=== PATIENT | female | born 1960 | race Caucasian/White ===

== ENCOUNTER 2016-09-18 19:42 | Emergency (ER) | payer BC ==
[~2016-09-18] VITALS: Ht 157.5 cm; Wt 107.5 kg
[2016-09-18 19:49] VITALS: Ht 157.5 cm; Wt 107.5 kg
[2016-09-18] MEDS ORDERED: IBUPROFEN 200 MG TAB PO ONE (20:30)
[2016-09-18 20:38] LABS: URINE BLOOD (Dip) POC Negative (NEGATIVE)
[2016-09-18] MEDS ORDERED: KETOROLAC 15 MG INJ IM STA (22:16)
--- NOTE | 2016-09-18 22:16 | ERD ---
ER Documentation Chief Complaint Date/Time DATE: 09/18/16 TIME: 22:12 Chief Complaint painful urination and back pain for 2 days HPI This 56-year-old female presents to emergency department with low back pain, bladder pressure, dysuria. Symptoms 3 days without report of hematuria, fever , or chills. ROS All systems reviewed and are negative except as per history of present illness. Medications Home Meds Active Scripts Naproxen* (Naprosyn*) 500 Mg Tablet, 500 MG PO BID Y for PAIN AND/OR INFLAMMATION for 10 Days, #20 TAB Prov:BIANCA BARAHONA 09/19/16 Allergies Allergies: Coded Allergies: No Known Allergy (Unverified , 09/18/16) PMhx/Soc Medical and Surgical Hx: pt denies Medical Hx, pt denies Surgical Hx Hx Alcohol Use: No Hx Substance Use: No Hx Tobacco Use: No Physical Exam Vitals Vitals stable, triage notes reviewed Physical Exam Const: Obese, well appearing, no acute distress Head: Atraumatic Eyes: Normal Conjunctiva PERRLA, EOMI ENT: Normal External Ears, Nose and Mouth mucous membranes moist. Neck: Full range of motion..~ No meningismus. Resp: Respirations even and unlabored, no respiratory distress Cardio: Abd: Low bladder tenderness. CVA tenderness Skin: Back: No midline or flank tenderness Ext: Neur: Awake and alert Psych: Normal Mood and Affect Results 24 hrs Laboratory Tests Test 09/18/16 20:43 Bedside Urine pH (LAB) 6.0 Bedside Urine Protein (LAB) Trace Bedside Urine Glucose (UA) Negative Bedside Urine Ketones (LAB) Negative Bedside Urine Blood Negative Bedside Urine Nitrite (LAB) Negative Bedside Urine Leukocyte Esterase (L Negative Current Medications Medications (Trade) Dose Ordered Sig/Carmen Route PRN Reason Start Time Stop Time Status Last Admin Dose Admin Ibuprofen (Motrin) 400 mg ONCE ONCE PO 09/18/16 20:30 09/18/16 20:31 DC 09/18/16 20:34 Ketorolac Tromethamine (Toradol) 15 mg ONCE STAT IM 09/18/16 22:16 09/18/16 22:18 DC 09/18/16 23:02 Interpretation text, urinalysis negative for leukocytosis, nitrates or microscopic hematuria Procedures/MDM PROCEDURE: US Non-OB Pelvis. CLINICAL INDICATION: Pelvic pain. Status post hysterectomy 14 years ago. TECHNIQUE: Multiple sonographic images of the pelvis were obtained utilizing a transabdominal and endovaginal technique. The images were reviewed on a PACS workstation. COMPARISON: None. FINDINGS: The patient is status post hysterectomy. A structure which appears to represent a normal cervix is visualized. The right ovary is not visualized. The left ovary measures 2.9 x 1.2 x 1.6 cm. Blood flow is demonstrated to the left ovary. No adnexal masses are noted. There is no evidence of free fluid. IMPRESSION: 1. Status post hysterectomy. 2. Normal appearance of the left ovary. 3. The right ovary is not visualized. Electronically viewed and signed by .Missael Koo MD, on 09/18/2016 23:35 This pleasant 56-year-old female presents to emergency department with a 3 day history of low pelvic pain dysuria and back pain. Patient denies hematuria, history nausea vomiting fever or chills. Surgical history includes hysterectomy several years ago. No concern pyelonephritis, cholecystitis, diverticulitis, constipation Urinalysis negative for hematuria, nitrates or leukocytosis. Pelvic ultrasound non-OB reveals as previously stated post hysterectomy, normal-appearing left ovary, right ovary is not visualized. Patient treated with Toradol and Motrin effectively. Patient will be discharged home with diagnosis of abdominal pain, treat with Motrin as needed, increase fiber, fluids, return to emergency department for any worsening or change in symptoms. Any nausea vomiting fever chills, I feel the patient is stable for discharge at this time with outpatient management by primary care physician. I have discussed results, examination findings, the treatment plan with the patient and family present prior to discharge. Indications for emergent reevaluation, side effects of medication were also discussed. All questions were answered. Patient verbalizes understanding and agrees with plan of care. Departure Diagnosis: Primary Impression: Abdominal pain Abdominal location: lower abdomen, unspecified Qualified Code: R10.30 - Lower abdominal pain Additional Impression: Back pain Back pain location: low back pain Chronicity: unspecified Back pain laterality: unspecified Sciatica presence: without sciatica Qualified Code: M54.5 - Low back pain without sciatica, unspecified back pain laterality, unspecified chronicity Condition: Good Patient Instructions: Abdominal Pain, Back Pain (Acute Or Chronic) Referrals: [facility] REFERRAL LIST Additional Instructions: Thank you for for coming to [facility] for your care today. Please ask your nurse or provider if you have questions about your care today and do not leave until all your questions have been answered. Please use any medications given as directed and follow-up with your doctor (or the doctor you were referred to) in the next 2-3 days. If you do not have a primary care doctor you may follow up at the [facility] (listed below). You may also use motrin and tylenol as needed for fever and/or pain unless instructed otherwise by your provider or nurse. Indications for more urgent follow-up have been discussed, but you may return to the Emergency Department at ANY time for any worrisome or worsening symptoms. If you have abdominal pain, please know that no test or exam you received is perfect and you should follow up within 8 hours for continued pain. If you had any imaging studies today, such as an X-Ray or CT Scan, these studies will be reviewed later by a radiologist. You will be called if there are important findings that were not identified today, so make sure the contact information you provided at registration is correct. If you received any narcotic pain control medicine today, such as Vicodin, Morphine or Dilaudid, your coordination and judgment may be affected for a number of hours. Please do not drive or operate heavy machinery, and you may want someone to assist you at home. If you were given a prescription for narcotic medication, be aware that it is very addictive- use sparingly and only if necessary. BIANCA BARAHONA Sep 18, 2016 22:15
--- NOTE | 2016-09-18 23:36 | RADRPT ---
PROCEDURE: US Non-OB Pelvis. CLINICAL INDICATION: Pelvic pain. Status post hysterectomy 14 years ago. TECHNIQUE: Multiple sonographic images of the pelvis were obtained utilizing a transabdominal and endovaginal technique. The images were reviewed on a PACS workstation. COMPARISON: None. FINDINGS: The patient is status post hysterectomy. A structure which appears to represent a normal cervix is v isualized. The right ovary is not visualized. The left ovary measures 2.9 x 1.2 x 1.6 cm. Blood flow is demon strated to the left ovary. No adnexal masses are noted. There is no evidence of free fluid. IMPRESSION: 1. Status post hysterectomy. 2. Normal appearance of the left ovary. 3. The right ovary is not visualized. RPTAT: HTAR .Missael Koo MD, Date Time Electronically viewed and signed by .Missael Koo MD, on 09/18/2016 23:35 .R/
[2016-09-19] MEDS ORDERED: NAPR-260 PO (00:40)
[2016-09-19 00:56] VITALS: BP 140/78; PULSE 74; RESP 16
[2016-10-03 16:18] LABS: URINE BLOOD (Dip) POC Negative (NEGATIVE)
== END 2016-09-19 00:57 | disposition home or self-care (01) ==
LOC: FTE 19:42
DX: R10.30 Lower abdominal pain, unspecified (principal); M54.5 Low back pain; R10.2 Pelvic and perineal pain; E66.9 Obesity, unspecified; Z68.41 Body mass index [BMI] 40.0-44.9, adult
CPT/HCPCS: 76830; 76856; 81003; 96372; J1885; Z7502; Z7610

== ENCOUNTER 2016-11-15 12:25 | Emergency (ER) | payer BC ==
[~2016-11-15] VITALS: Ht 157.5 cm; Wt 97.0 kg
[~2016-11-15 12:25] MED LIST: NAPR-260 PO
[2016-11-15 13:00] VITALS: Ht 157.5 cm; Wt 97.0 kg
[2016-11-15] MEDS ORDERED: ALPRAZOLAM 0.25 MG TAB PO ONE (13:30)
[2016-11-15] MEDS ORDERED: GLYB2.5T2 PO (14:09)
[2016-11-15] MEDS ORDERED: METF1000 PO (14:09)
[2016-11-15] MEDS ORDERED: FLUO20CA22 PO (14:11)
[2016-11-15] MEDS ORDERED: ALPR0.5T PO (14:14)
--- NOTE | 2016-11-15 14:20 | ERD ---
ER Documentation Chief Complaint Date/Time DATE: 11/15/16 TIME: 14:18 Chief Complaint CODE RIGOBERTO ANXIETY AFTER BEING LOCKED IN ELEVATED HPI This 56-year-old female presents to emergency room after she was stuck and elevated for several minutes. She had anxiety and wanted to be seen in the emergency room. No chest pain. She suffered no trauma. ROS All systems reviewed and are negative except as per history of present illness. Medications Home Meds Active Scripts Alprazolam* (Xanax*) 0.5 Mg Tab, 0.5 MG PO Q8H Y for ANXIETY, #5 TAB Prov:WILLIAM FRANKLIN DO 11/15/16 Reported Medications Fluoxetine Hcl* (Fluoxetine Hcl*) 20 Mg Capsule, 20 MG PO DAILY, CAP 11/15/16 Glyburide* (Glyburide*) 2.5 Mg Tablet, 2.5 MG PO DAILY, #30 TAB 11/15/16 Metformin Hcl* (Metformin Hcl*) 1,000 Mg Tablet, 1000 MG PO BID, #30 TAB 11/15/16 Discontinued Scripts Naproxen* (Naprosyn*) 500 Mg Tablet, 500 MG PO BID Y for PAIN AND/OR INFLAMMATION for 10 Days, #20 TAB Prov:BROOKLYNSHREYASBIANCA 09/19/16 Allergies Allergies: Coded Allergies: No Known Allergy (Unverified , 09/18/16) PMhx/Soc Hx Alcohol Use: No Hx Substance Use: No Hx Tobacco Use: No Physical Exam Vitals Vital Signs Date Time Temp Pulse Resp B/P Pulse Ox O2 Delivery O2 Flow Rate FiO2 11/15/16 13:00 98.1 102 17 169/104 100 Physical Exam Const: [] Moderate distress, appears anxious Head: Atraumatic Eyes: Normal Conjunctiva ENT: Normal External Ears, Nose and Mouth. Neck: Full range of motion..~ No meningismus. Resp: Clear to auscultation bilaterally Cardio: Regular rate and rhythm, no murmurs Skin: No petechiae or rashes Ext: No cyanosis, or edema Neur: Awake and alertAnd oriented 3, cranial 2 through 12 intact, no focal deficits, Psych: , no gait anxiety Results 24 hrs Current Medications Medications (Trade) Dose Ordered Sig/Carmen Route PRN Reason Start Time Stop Time Status Last Admin Dose Admin Alprazolam (Xanax) 0.5 mg ONCE ONCE PO 11/15/16 13:30 11/15/16 13:31 DC 11/15/16 13:40 Procedures/MDM Situational anxiety after being stuck in an elevator. Patient was given 0.5 mg of Xanax after which she began to feel much better and she then wanted to go home. She had no chest pain reason to suspect cardiac dysfunction suffered no trauma. We will discharge primary care follow-up next 2 3 days and return precautions.Also discharging with 5.5 Xanax tabs. Departure Diagnosis: Primary Impression: Anxiety attack Condition: Stable Patient Instructions: Anxiety Reaction Additional Instructions: Call your primary care doctor TOMORROW for an appointment during the next 2-3 days.See the doctor sooner or return here if your condition worsens before your appointment time. WILLIAM FRANKLIN DO Nov 15, 2016 14:20
== END 2016-11-15 14:58 | disposition home or self-care (01) ==
LOC: E/R 12:25
DX: F41.9 Anxiety disorder, unspecified (principal); Z79.84 Long term (current) use of oral hypoglycemic drugs
CPT/HCPCS: Z7502; Z7610; 99283

== ENCOUNTER 2017-07-21 22:15 | Inpatient (IN) | END 2017-07-23 18:50 | disposition home or self-care (01) | DRG 394 ==

== ENCOUNTER 2018-05-26 12:25 | Inpatient (IN) | payer BC ==
[~2018-05-26] VITALS: Ht 167.6 cm; Wt 116.8 kg
[~2018-05-26 12:25] MED LIST changes: +ATOR40TA68 PO; +FLUO20CA22 PO; +GLIM2TAB PO; +GLYB2.5T2 PO; +LOSA50TA14 PO; +METF100010 PO; -NAPR-260 PO
[2018-05-26 22:00] VITALS: BP 132/62; PULSE 95; RESP 20
[2018-05-26] MEDS ORDERED: NACL 0.9% 3 ML SYG IV SCH (22:00)
[2018-05-26] MEDS ORDERED: ACETAMINOPHEN 650 MG SUPP PR PRN (22:00)
[2018-05-26] MEDS ORDERED: hydrALAzine 20 MG INJ IV PRN (22:00)
[2018-05-26] MEDS: SOD CHLORIDE 0.9% 1,000 ML IV SCH (22:06)
[2018-05-26] MEDS: morphine 2 MG INJ IV PRN (22:06)
[2018-05-26 22:19] VITALS: Ht 167.6 cm; Wt 116.8 kg
[2018-05-27] MEDS: INSULIN ASPART [NOVOLOG] 3 ML PEN SC SCH ×6 (00:38→20:23)
[2018-05-27 02:00] VITALS: BP 119/64; PULSE 96; RESP 18
[2018-05-27] MEDS ORDERED: ACCU-CHEK XX SCH (02:00)
--- NOTE | 2018-05-27 05:48 | HP ---
Date/Time of Note Date/Time of Note DATE: 05/27/18 TIME: 05:39 Assessment/Plan VTE Prophylaxis SCD applied (from Nsg): Yes Pharmacological prophylaxis: NA/contraindicated Pharm contraindication: low risk/ambulating Lines/Catheters IV Catheter Type (from Nrsg): Peripheral IV Urinary Cath still in place: No Assessment/Plan Hospital Course This is a 58-year-old female being admitted to the [facility] floor for: 1. Recurrent small bowel obstruction: CT showed dilated small bowel with air- fluid levels and decompressed distal small bowel consistent with small bowel obstruction. Suspect transition point within the right aspect of complex ventral hernia. At the current time we will keep the patient n.p.o., continue NG tube to low wall suction.. IV fluid hydration with normal saline. Will consult general surgery in the a.m. small bowel follow-through in the a.m. 2. History of spigelian hernia: No evidence of obstruction from these, further management as per general surgery. 3. Diabetes mellitus: We will check hemoglobin A1c, will hold patient's home medications, insulin sliding scale 4. Hypertension: We will hold patient's home medication at this time as needed hydralazine for systolic greater than 170 5. Hyperlipidemia: We will check lipid panel, resume patient's home medication once patient is able to tolerate diet 6. Gastritis: Stable 7. Arthritis: Stable 8 DVT GI prophylaxis: SCDs, no GI prophylaxis indicated Further treatment strategy will be implemented as per the clinical course Result Diagram: 05/26/18214605/[id number]/182146 Results 24hrs Laboratory Tests Test 05/26/18 21:47 05/26/18 22:28 05/27/18 00:34 05/27/18 04:34 White Blood Count 7.7 Pending Red Blood Count 4.40 Pending Hemoglobin 11.7 L Pending Hematocrit 37.7 Pending Mean Corpuscular 85.7 Pending Volume Mean Corpuscular 26.6 L Pending Hemoglobin Mean Corpuscular 31.0 L Pending Hemoglobin Concent Red Cell 14.1 Pending Distribution Width Platelet Count 189 # Pending Mean Platelet Volume 9.7 Pending Immature 0.300 Granulocytes % Neutrophils % 64.2 Lymphocytes % 24.1 Monocytes % 8.9 Eosinophils % 2.2 Basophils % 0.3 Nucleated Red Blood 0.0 Cells % Immature 0.020 Granulocytes # Neutrophils # 4.9 Lymphocytes # 1.8 Monocytes # 0.7 Eosinophils # 0.2 Basophils # 0.0 Nucleated Red Blood 0.0 Cells # Sodium Level 136 Potassium Level 4.0 Chloride Level 105 Carbon Dioxide Level 29 Anion Gap 2 L Blood Urea Nitrogen 20 Creatinine 0.57 Est Glomerular > 60 Filtrat Rate mL/min Glucose Level 141 Hemoglobin A1c 7.5 H Calcium Level 8.5 Magnesium Level 2.2 Total Bilirubin 0.3 Direct Bilirubin 0.00 Indirect Bilirubin 0.3 Aspartate Amino 24 Transf (AST/SGOT) Alanine 50 Aminotransferase (AL T/SGPT) Alkaline Phosphatase 71 Total Protein 6.5 Albumin 3.4 Globulin 3.10 Albumin/Globulin 1.09 Ratio Bedside Glucose 135 149 HPI/ROS Admit Date/Time Admit Date/Time May 26, 2018 at 20:40 Hx of Present Illness Chief complaint: Abdominal pain This is a 58-year-old female with a past medical history of multiple ventral hernia repairs and recurrent small bowel obstructions who presented to [facility] with complaints of abdominal pain that started on . Patient reported that her last BM was on . She was evaluated in the ER and a noncontrast CT showed dilated small bowel with air-fluid levels and decompressed distal small bowel consistent with small bowel obstruction. Suspect transition point within the right aspect of complex ventral hernia. No evidence of acute appendicitis. Status post cholecystectomy and hysterectomy patient was admitted to [facility] and had an NG tube inserted. She was seen by the general surgeon there as well. I do not have the reports for these at the current time. She was maintained on low flow low wall suction. And then she was transferred to [facility] secondary to insurance purposes. Patient at the current time remains with an NG tube which has been connected to wall suction Pertinent laboratory findings laboratory findings upon admission to the transferring facility showed: White blood cell count of 18,000 hemoglobin 15.1/hematocrit 46.9/platelet count 220 PT 10.3 INR 0.94 BMP showed a sodium of 135 potassium 4.2 chloride 29 CO2 20.4 glucose 245 BUN 21 creatinine 0.7. ROS Const: As per HPI Eyes : No pain discharge or redness or change in visual acuity ENT: No pain, sore throat, congestion, congestion, dysphagia or discharge Respiratory: No shortness of breath, cough, sputum, wheezing, or pleuritic pain Cardiovascular: No chest pain, palpitation, PND, or edema GI : As per HPI Genitourinary: No dysuria, hematuria, flank pain , discharge or CVA tenderness Musculoskeletal: No joint pain, back pain, neck pain, restricted range of motion in neck or joints Skin: No rash, bruising or hives Neuro: No headache, dizziness, syncope, seizure, focal weakness Endocrine: No polyuria, polydipsia, temperature intolerance Psych: No hallucination, depression, anxiety or suicidal ideation PMH/Family/Social Past Medical History Abdominal hernia, history of small bowel obstructions, diabetes mellitus, hypertension, hyperlipidemia, gastritis, arthritis Medications Current Medications Sodium Chloride 1,000 ml @ 100 mls/hr Q10H IV Last administered on 05/26/18at 22:06; Admin Dose 100 MLS/HR; Start 05/26/18 at 21:31 IV Flush (NS 3 ml) 3 ml PER PROTOCOL IV ; Start 05/26/18 at 22:00 Ondansetron HCl (Zofran Inj) 4 mg Q6H PRN IV NAUSEA/VOMITING; Start 05/26/18 at 22:00 Acetaminophen (Tylenol Supp) 650 mg Q6H PRN [place] .PAIN 1-3 OR TEMP; Start 05/26/18 at 22:00 Morphine Sulfate (morphine) 2 mg Q4H PRN IV .SEVERE PAIN 7-10 Last administered on 05/26/18at 22:06; Admin Dose 2 MG; Start 05/26/18 at 22:00 Insulin Aspart (Novolog Insulin Pen) NOVOLOG *MILD* ALGORI... Q4 SC Last administered on 05/27/18at 05:28; Admin Dose 1 UNIT; Start 05/27/18 at 01:00 Hydralazine HCl (Apresoline) 10 mg Q4H PRN IV ELEVATED BLOOD PRESSURE; Start 05/26/18 at 22:00 Coded Allergies: No Known Allergy (Unverified , 09/18/16) Past Surgical History Several hernia surgeries, small bowel resection, total abdominal hysterectomy Past Surgical Hx: other Family History Significant Family History: no pertinent family hx Social History Alcohol Use: none Smoking Status: Never smoker Drug Use: none Exam/Review of Systems Vital Signs Vitals Vital Signs Date Temp Pulse Resp B/P (MAP) Pulse Ox O2 O2 Flow FiO2 Time Delivery Rate 05/27/18 98.9 96 18 119/64 97 Room Air 02:00 (82) Exam Exam General: Patient is a pleasant female currently lying in bed in no acute distress HEENT: Atraumatic, normocephalic. The pupils are equal, round and reactive. Extraocular motor are intact, NG tube in place connected to wall suction Neck: Supple with full range of motion. No rigidity or meningismus Chest: Nontender Lungs: Clear to auscultation bilaterally no crackles rales or wheezing Heart: Normal S1-S2, Regular rhythm and rate. No murmur, S3, or S4 Abdomen: Soft, generalized tenderness to palpation with greatest being in the right lower quadrant, morbidly obese, hypoactive bowel sounds Extremities: Normal to inspection, no edema no cyanosis Neurologic: Normal mental status, speech normal, cranial nerves II through XII are intact, motor and sensory are intact, ADDIE MEDINA May 27, 2018 05:48
[2018-05-27] MEDS: morphine 2 MG INJ IV PRN ×2 (07:06→10:54)
[2018-05-27 07:28] VITALS: BP 116/64; PULSE 95; RESP 18
[2018-05-27] MEDS: SOD CHLORIDE 0.9% 1,000 ML IV SCH ×3 (08:27→23:37)
[2018-05-27] MEDS ORDERED: ACETAMINOPHEN 500 MG TAB PO PRN (09:00)
[2018-05-27] MEDS ORDERED: DIATR MEGLU/DIATRIZOATE SODIUM 120 ML BTL ONE (09:05)
[2018-05-27] MEDS: ONDANSETRON 4 MG INJ IV PRN (13:16)
[2018-05-27 13:32] VITALS: BP 114/69; PULSE 95; RESP 18
--- NOTE | 2018-05-27 16:28 | CONS ---
Assessment/Plan Assessment/Plan Hospital Course (Demo Recall) 1. Abdominal pain with concern for small bowel obstruction: + Bowel function -SBFT noted> negative for obstruction -Advance diet as tolerated -May be discharged per medical team if tolerating diet and continues to have + bowel function 2. Diabetes: Glucose optimization 3. Hypertension and hyperlipidemia: -Highly encourage weight loss -Medical management 4. Gastritis: -PPI 5. Arthritis: -Pain management as needed -Encourage weight loss 6. Morbid obesity BMI: 42 -diet and exercise optimization -encourage weight loss Thank you. Patient seen and examined in collaboration with Dr. Ramo Wilson. Consultation Date/Type/Reason Admit Date/Time May 26, 2018 at 20:40 Date of Consultation: May 27, 2018 Type of Consult Surgical Reason for Consultation Small bowel obstruction Requesting Provider: ADDIE MEDINA Date/Time of Note DATE: 05/27/18 TIME: 16:14 Hx of Present Illness Heaven Crespo is a 58-year-old woman with past medical history of diabetes, hypertension, hyperlipidemia, gastritis, arthritis, multiple abdominal surgeries including ventral hernia repair x5, recurrent small bowel obstruction, hysterectomy, cholecystectomy who presented to outside hospital with reports of abdominal pain which started on the . Associated symptoms include no bowel function since the . CT imaging from outside hospital showed dilated small bowel with air-fluid levels and decompressed distal small bowel consistent with small bowel obstruction. Pertinent lab findings include elevated WBC from outside hospital. No current reports of fevers, chills, congested cough, chest pain, palpitations, nausea, vomiting, diarrhea, seizure, rash. A small bowel follow-through was performed at this facility which shows no bowel obstruction. She has also since had multiple large bowel movements and is stated to be feeling much better. General surgery was asked to evaluate. 12 point review of systems is performed and is negative except for as stated in HPI. Past Medical History As above Home Meds Reported Medications Glimepiride* (Glimepiride*) 2 Mg Tablet, 2 MG PO BID, #30 07/21/17 Atorvastatin* (Atorvastatin*) 40 Mg Tablet, 40 MG PO QHS, #30 07/21/17 Losartan Potassium* (Losartan Potassium*) 50 Mg Tablet, 50 MG PO DAILY, #30 07/21/17 Fluoxetine Hcl* (Fluoxetine Hcl*) 20 Mg Capsule, 20 MG PO DAILY, CAP 11/15/16 Glyburide* (Glyburide*) 2.5 Mg Tablet, 2.5 MG PO DAILY, #30 TAB 11/15/16 Metformin Hcl* (Metformin Hcl*) 1,000 Mg Tablet, 1000 MG PO BID, #30 TAB 11/15/16 Medications Current Medications Sodium Chloride 1,000 ml @ 100 mls/hr Q10H IV Last administered on 05/27/18at 08:27; Admin Dose 100 MLS/HR; Start 05/26/18 at 21:31 IV Flush (NS 3 ml) 3 ml PER PROTOCOL IV ; Start 05/26/18 at 22:00 Ondansetron HCl (Zofran Inj) 4 mg Q6H PRN IV NAUSEA/VOMITING Last administered on 05/27/18at 13:16; Admin Dose 4 MG; Start 05/26/18 at 22:00 Acetaminophen (Tylenol Supp) 650 mg Q6H PRN CO .PAIN 1-3 OR TEMP; Start 05/26/18 at 22:00 Morphine Sulfate (morphine) 2 mg Q4H PRN IV .SEVERE PAIN 7-10 Last administered on 05/27/18at 10:54; Admin Dose 2 MG; Start 05/26/18 at 22:00 Insulin Aspart (Novolog Insulin Pen) NOVOLOG *MILD* ALGORI... Q4 SC Last administered on 05/27/18at 12:47; Admin Dose 1 UNIT; Start 05/27/18 at 01:00 Hydralazine HCl (Apresoline) 10 mg Q4H PRN IV ELEVATED BLOOD PRESSURE; Start 05/26/18 at 22:00 Acetaminophen (Tylenol Tab) 500 mg Q6H PRN PO MILD PAIN(1-3)OR ELEVATED TEMP; Start 05/27/18 at 09:00 Allergies: Coded Allergies: No Known Allergy (Unverified , 09/18/16) Past Surgical History As above Past Surgical Hx: other Social History Alcohol Use: none Smoking Status: Never smoker Drug Use: none Exam/Review of Systems Exam Vitals Vital Signs Date Temp Pulse Resp B/P (MAP) Pulse Ox O2 O2 Flow FiO2 Time Delivery Rate 05/27/18 98.5 95 18 114/69 93 Room Air 13:32 (84) 05/27/18 2.0 09:00 Intake and Output 3/05/26/18 05/27/18 1515:00 23:00 07:00 IntakeIntake Total 700 ml BalanceBalance 700 ml Constitutional: alert, oriented, obese Psych: no complaints, nl mood/affect Head: normocephalic, atraumatic Eyes: nl conjunctiva, EOMI ENMT: nl external ears & nose, nl lips & teeth, mucosa pink and moist, other (NG tube) Neck: supple, non-tender Respiratory: normal air movement; No congested cough, No labored breathing Cardiovascular: regular rate and rhythm, nl pulses Gastrointestinal: soft, non-tender, distended (Moderate), other (Large pannus; surgical scars) Musculoskeletal: nl extremities to inspection, nl gait and stance Extremities: normal pulses Neurological: nl mental status, nl speech, nl strength Skin: nl turgor, other (Vitiligo); No rash or lesions Results Result Diagram: 05/27/18 0434 05/27/18 0433 Results 24hrs Laboratory Tests Test 05/26/18 21:47 05/26/18 22:28 05/27/18 00:34 05/27/18 04:33 White Blood Count 7.7 Red Blood Count 4.40 Hemoglobin 11.7 L Hematocrit 37.7 Mean Corpuscular 85.7 Volume Mean Corpuscular 26.6 L Hemoglobin Mean Corpuscular 31.0 L Hemoglobin Concent Red Cell 14.1 Distribution Width Platelet Count 189 # Mean Platelet Volume 9.7 Immature 0.300 Granulocytes % Neutrophils % 64.2 Lymphocytes % 24.1 Monocytes % 8.9 Eosinophils % 2.2 Basophils % 0.3 Nucleated Red Blood 0.0 Cells % Immature 0.020 Granulocytes # Neutrophils # 4.9 Lymphocytes # 1.8 Monocytes # 0.7 Eosinophils # 0.2 Basophils # 0.0 Nucleated Red Blood 0.0 Cells # Sodium Level 136 143 Potassium Level 4.0 4.0 Chloride Level 105 104 Carbon Dioxide Level 29 29 Anion Gap 2 L 10 # Blood Urea Nitrogen 20 17 Creatinine 0.57 0.53 Est Glomerular > 60 > 60 Filtrat Rate mL/min Glucose Level 141 157 Hemoglobin A1c 7.5 H Calcium Level 8.5 8.3 L Magnesium Level 2.2 2.2 Total Bilirubin 0.3 0.3 Direct Bilirubin 0.00 0.00 Indirect Bilirubin 0.3 0.3 Aspartate Amino 24 20 Transf (AST/SGOT) Alanine 50 45 Aminotransferase (AL T/SGPT) Alkaline Phosphatase 71 68 Total Protein 6.5 6.3 Albumin 3.4 3.4 Globulin 3.10 2.90 Albumin/Globulin 1.09 1.17 Ratio Bedside Glucose 135 149 Triglycerides Level 125 Cholesterol Level 135 LDL Cholesterol, 76 Calculated HDL Cholesterol 34 L Cholesterol/HDL 3.9 Ratio Thyroid Stimulating 0.622 Hormone (TSH) Test 05/27/18 04:34 05/27/18 05:25 05/27/18 08:29 05/27/18 12:45 White Blood Count 8.3 Red Blood Count 4.37 Hemoglobin 11.7 L Hematocrit 37.5 Mean Corpuscular 85.8 Volume Mean Corpuscular 26.8 L Hemoglobin Mean Corpuscular 31.2 L Hemoglobin Concent Red Cell 14.2 Distribution Width Platelet Count 198 Mean Platelet Volume 10.0 Immature 0.200 Granulocytes % Neutrophils % Segmented 71 Neutrophils % (Manual) Band Neutrophils % 4 (Manual) Lymphocytes % Lymphocytes % 17 (Manual) Reactive Lymphocytes 2 H % (Manual) Monocytes % Monocytes % (Manual) 6 Eosinophils % Basophils % Nucleated Red Blood 0.0 Cells % Immature 0.020 Granulocytes # Neutrophils # Neutrophils # 5.9 (Manual) Band Neutrophils # 0.3 Lymphocytes (Manual) 1.4 Lymphocytes # Reactive Lymphocytes 0.1 H # Monocytes # Monocytes # (Manual) 0.4 Eosinophils # Basophils # Nucleated Red Blood Cells # Platelet Estimate NORMAL Polychromasia 1+ Anisocytosis 1+ Microcytosis 1+ Bedside Glucose 157 151 144 Medications Medication Current Medications Sodium Chloride 1,000 ml @ 100 mls/hr Q10H IV Last administered on 05/27/18at 08:27; Admin Dose 100 MLS/HR; Start 05/26/18 at 21:31 IV Flush (NS 3 ml) 3 ml PER PROTOCOL IV ; Start 05/26/18 at 22:00 Ondansetron HCl (Zofran Inj) 4 mg Q6H PRN IV NAUSEA/VOMITING Last administered on 05/27/18at 13:16; Admin Dose 4 MG; Start 05/26/18 at 22:00 Acetaminophen (Tylenol Supp) 650 mg Q6H PRN CO .PAIN 1-3 OR TEMP; Start 05/26/18 at 22:00 Morphine Sulfate (morphine) 2 mg Q4H PRN IV .SEVERE PAIN 7-10 Last administered on 05/27/18at 10:54; Admin Dose 2 MG; Start 05/26/18 at 22:00 Insulin Aspart (Novolog Insulin Pen) NOVOLOG *MILD* ALGORI... Q4 SC Last administered on 05/27/18at 12:47; Admin Dose 1 UNIT; Start 05/27/18 at 01:00 Hydralazine HCl (Apresoline) 10 mg Q4H PRN IV ELEVATED BLOOD PRESSURE; Start 05/26/18 at 22:00 Acetaminophen (Tylenol Tab) 500 mg Q6H PRN PO MILD PAIN(1-3)OR ELEVATED TEMP; Start 05/27/18 at 09:00 ESTRELLITA DEL RIO NP May 27, 2018 16:28
--- NOTE | 2018-05-27 16:55 | PDOCDIS ---
Discharge Instructions CONDITION [id number] Patient Condition: [id number] Stable HOME CARE INSTRUCTIONS: [id number] Special Diet: [id number] Carbohydrate controlled diet OTHER ORDERS: Other Orders: 1. Resume home medications. 2. Take a carbohydrate controlled diet as tolerated. 3. Resume activities as tolerated. 4. Follow-up with your primary care physician in 2 weeks. 5. Please go to the nearest emergency room if you have any abdominal pain, persistent nausea/vomiting, or any other unusual signs/symptoms. ABHI GUSMAN NP May 27, 2018 16:55
--- NOTE | 2018-05-27 17:00 | DS ---
Date/Time of Note Date/Time of Note DATE: 05/27/18 TIME: 16:57 Discharge Summary Admission/Discharge Info Admit Date/Time May 26, 2018 at 20:40 Discharge Date/Time Discharge Diagnosis 1. Recurrent small bowel obstruction. 2. History of spigelian hernia. 3. Diabetes mellitus type 2. Hemoglobin A1c 7.5. 4. Hypertension. 5. Hyperlipidemia. 6. Obesity. BMI 41.6 kg/m. Patient Condition: Stable Consults 1. Ramo Wilson MD, General Surgery. Procedures Small Bowel X-ray IMPRESSION: 1. Nasogastric tube tip in the stomach. 2. Prior right upper quadrant abdomen surgery. 3. Mildly dilated mid small bowel measuring 4.9 cm. 4. No evidence of obstruction. 5. Otherwise unremarkable small bowel follow-through. Hx of Present Illness This is a 58-year-old female with a past medical history of multiple abdominal surgeries and multiple small bowel obstructions who presented to [facility] with complaint of abdominal pain. Patient's CT scan showed dilated small bowel with air-fluid levels and decompressed distal small bowel consistent with small bowel obstruction. The patient was evaluated by general surgery at [facility]. The patient was transferred to [facility] for further evaluation and management because of insurance reasons. Hospital Course The patient was admitted to inpatient setting. She was started on NGT decompression. General surgery consult was obtained. The patient underwent an abdominal x-ray upon admission to [facility] that was showing gaseous distention of the proximal small bowel, unable to exclude bowel obstruction. The patient underwent a small bowel follow-through on 05/27/2018 that was showing no evidence of any obstruction. The patient's NGT decompression was discontinued. The patient's NG tube was discontinued. The patient was started on a clear liquid diet and the patient's diet was advanced as tolerated to a regular consistency diet without any significant gastrointestinal symptoms. The patient was cleared by general surgery to be discharged home. The patient's chronic problems include diabetes mellitus type 2. The patient's hemoglobin A1c was found to be 7.5. The patient was maintained on sliding scale insulin. The patient has underlying hypertension. The patient was maintained on PRN antihypertensives for any high blood pressure readings. The patient has underlying dyslipidemia. The patient's fasting lipid panel was satisfactory. The patient is obese with a BMI of 41.6 kg/m square. The patient was advised on weight reduction. The patient had a stable hospital course. The patient is stable to be discharged home. Discharge Instructions 1. Resume home medications. 2. Take a carbohydrate controlled diet as tolerated. 3. Resume activities as tolerated. 4. Follow-up with your primary care physician in 2 weeks. 5. Please go to the nearest emergency room if you have any abdominal pain, persistent nausea/vomiting, or any other unusual signs/symptoms. The patient verbalized understanding of her discharge instructions. At this time I would like to thank Dr. Wilson for seeing the patient and providing clinical recommendations. The patient was seen in collaboration with Dr. eRyes. Home Meds Reported Medications Glimepiride* (Glimepiride*) 2 Mg Tablet, 2 MG PO BID, #30 07/21/17 Atorvastatin* (Atorvastatin*) 40 Mg Tablet, 40 MG PO QHS, #30 07/21/17 Losartan Potassium* (Losartan Potassium*) 50 Mg Tablet, 50 MG PO DAILY, #30 07/21/17 Fluoxetine Hcl* (Fluoxetine Hcl*) 20 Mg Capsule, 20 MG PO DAILY, CAP 11/15/16 Glyburide* (Glyburide*) 2.5 Mg Tablet, 2.5 MG PO DAILY, #30 TAB 11/15/16 Metformin Hcl* (Metformin Hcl*) 1,000 Mg Tablet, 1000 MG PO BID, #30 TAB 11/15/16 Follow-up Plan Patient to follow-up with her primary care physician in 2 weeks. Primary Care Provider Not On Staff Doctor Time spent on discharge: > 30 minutes Pending Labs Laboratory Tests Test 05/26/18 21:47 05/26/18 22:28 05/27/18 00:34 05/27/18 04:33 White Blood 7.7 Count 10^3/ul (4.8-10 .8) Red Blood 4.40 Count 10^6/ul (4.20-5 .40) Hemoglobin 11.7 g/dl (12.0-16.0 ) Hematocrit 37.7 % (37.0-47.0) Mean 85.7 Corpuscular fl (82.0-101.0) Volume Mean 26.6 Corpuscular pg (29.0-33.0) Hemoglobin Mean 31.0 Corpuscular g/dl (32.0-37.0 Hemoglobin Conc ) ent Red Cell 14.1 Distribution % (11.5-14.5) Width Platelet Count 189 10^3/UL (140-41 5) Mean Platelet 9.7 Volume fl (7.4-10.4) Immature 0.300 Granulocytes % % (0.001-0.429) Neutrophils % 64.2 % (39.0-77.0) Lymphocytes % 24.1 % (15.0-51.0) Monocytes % 8.9 % (0.0-11.0) Eosinophils % 2.2 % (0.0-7.0) Basophils % 0.3 % (0.0-2.0) Nucleated Red 0.0 Blood Cells % /100WBC (0.0-0. 0) Immature 0.020 Granulocytes # 10^3/ul (0.0-0. 031) Neutrophils # 4.9 10^3/ul (1.6-7. 5) Lymphocytes # 1.8 10^3/ul (0.8-2. 9) Monocytes # 0.7 10^3/ul (0.3-0. 9) Eosinophils # 0.2 10^3/ul (0.0-0. 5) Basophils # 0.0 10^3/ul (0.0-0. 1) Nucleated Red 0.0 Blood Cells # 10^3/ul (0.0-0. 0) Sodium Level 136 143 mmol/L (135-144 mmol/L (135-14 ) 4) Potassium 4.0 4.0 Level mmol/L (3.5-5.1 mmol/L (3.5-5. ) 1) Chloride Level 105 104 mmol/L (97-110) mmol/L (97-110 ) Carbon Dioxide 29 29 Level mmol/L (21-31) mmol/L (21-31) Anion Gap 2 (5-13) 10 (5-13) Blood Urea 20 mg/dl (7-20) 17 Nitrogen mg/dl (7-20) Creatinine 0.57 0.53 mg/dl (0.44-1.0 mg/dl (0.44-1. 0) 00) Est Glomerular > 60 > 60 Filtrat mL/min (>60) mL/min (>60) Rate mL/min Glucose Level 141 157 mg/dl (70-220) mg/dl (70-220) Hemoglobin A1c 7.5 % (0-5.9) Calcium Level 8.5 8.3 mg/dl (8.4-10.2 mg/dl (8.4-10. ) 2) Magnesium 2.2 2.2 Level mg/dl (1.7-2.5) mg/dl (1.7-2.5 ) Total 0.3 0.3 Bilirubin mg/dl (0.2-1.3) mg/dl (0.2-1.3 ) Direct 0.00 0.00 Bilirubin mg/dl (0.00-0.2 mg/dl (0.00-0. 0) 20) Indirect 0.3 0.3 Bilirubin mg/dl (0-1.1) mg/dl (0-1.1) Aspartate Amino 24 IU/L (15-46) 20 Transf (AST/SGO IU/L (15-46) T) Alanine 50 IU/L (13-69) 45 Aminotransferas IU/L (13-69) e (ALT/SGPT) Alkaline 71 68 Phosphatase IU/L (42-121) IU/L (42-121) Total Protein 6.5 6.3 g/dl (6.1-8.1) g/dl (6.1-8.1) Albumin 3.4 3.4 g/dl (3.3-4.9) g/dl (3.3-4.9) Globulin 3.10 2.90 g/dl (1.3-3.2) g/dl (1.3-3.2) Albumin/Globuli 1.09 1.17 n Ratio Bedside 135 149 Glucose mg/dL (70-220) mg/dL (70-220) Triglycerides 125 Level mg/dl (0-149) Cholesterol 135 Level mg/dl (100-200 ) LDL 76 mg/dl Cholesterol, Calculated HDL 34 Cholesterol mg/dl (37-92) Cholesterol/HDL 3.9 RATIO Ratio Thyroid 0.622 Stimulating MIU/L (0.465-4 Hormone (TSH) .680) Test 05/27/18 04:34 05/27/18 05:25 05/27/18 08:29 05/27/18 12:45 White Blood 8.3 Count 10^3/ul (4.8-10 .8) Red Blood 4.37 Count 10^6/ul (4.20-5 .40) Hemoglobin 11.7 g/dl (12.0-16.0 ) Hematocrit 37.5 % (37.0-47.0) Mean 85.8 Corpuscular fl (82.0-101.0) Volume Mean 26.8 Corpuscular pg (29.0-33.0) Hemoglobin Mean 31.2 Corpuscular g/dl (32.0-37.0 Hemoglobin Conc ) ent Red Cell 14.2 Distribution % (11.5-14.5) Width Platelet Count 198 10^3/UL (140-41 5) Mean Platelet 10.0 Volume fl (7.4-10.4) Immature 0.200 Granulocytes % % (0.001-0.429) Neutrophils % % (39.0-77.0) Segmented 71 % (39-77) Neutrophils % (Manual) Band 4 % (0-4) Neutrophils % (Manual) Lymphocytes % % (15.0-51.0) Lymphocytes % 17 % (15-51) (Manual) Reactive 2 % (0-0) Lymphocytes % (Manual) Monocytes % % (0.0-11.0) Monocytes % 6 % (0-11) (Manual) Eosinophils % % (0.0-7.0) Basophils % % (0.0-2.0) Nucleated Red 0.0 Blood Cells % /100WBC (0.0-0. 0) Immature 0.020 Granulocytes # 10^3/ul (0.0-0. 031) Neutrophils # 10^3/ul (1.6-7. 5) Neutrophils # 5.9 (Manual) 10^3/ul (1.6-7. 5) Band 0.3 Neutrophils # 10^3/ul (0.0-0. 6) Lymphocytes 1.4 (Manual) 10^3/ul (0.8-2. 9) Lymphocytes # 10^3/ul (0.8-2. 9) Reactive 0.1 Lymphocytes # 10^3/ul (0.0-0. 0) Monocytes # 10^3/ul (0.3-0. 9) Monocytes # 0.4 (Manual) 10^3/ul (0.3-0. 9) Eosinophils # 10^3/ul (0.0-0. 5) Basophils # 10^3/ul (0.0-0. 1) Nucleated Red 10^3/ul (0.0-0. Blood Cells # 0) Platelet NORMAL Estimate Polychromasia 1+ (0-0) Anisocytosis 1+ (0-0) Microcytosis 1+ (0-0) Bedside 157 151 144 Glucose mg/dL (70-220) mg/dL (70-220) mg/dL (70-220) ABHI GUSMAN NP May 27, 2018 17:00
[2018-05-27 20:08] VITALS: BP 100/51; PULSE 90; RESP 18
[2018-05-28] MEDS: INSULIN ASPART [NOVOLOG] 3 ML PEN SC SCH ×4 (01:00→12:24)
[2018-05-28 02:00] VITALS: BP 122/68; PULSE 88; RESP 18
[2018-05-28] MEDS ORDERED: GLUCAGON 1 MG INJ IM PRN (04:30)
[2018-05-28] MEDS ORDERED: DEXTROSE 50% 50 ML SYRINGE IV PRN ×2 (04:30)
[2018-05-28] MEDS ORDERED: GLUCOSE GEL 15 GRAM TUBE PO PRN ×2 (04:30)
[2018-05-28] MEDS ORDERED: GLUCOSE GEL 15 GRAM TUBE BUCCAL PRN (04:30)
[2018-05-28] MEDS ORDERED: Insulin NOVOLOG SS MILD Algorithm (SS with meals and bedtime) SC SCH (07:00)
[2018-05-28] MEDS ORDERED: INSULIN ASPART [NOVOLOG] 3 ML PEN SC SCH (07:00)
[2018-05-28 07:30] VITALS: BP 116/56; PULSE 88; RESP 18
[2018-05-28] MEDS: ONDANSETRON 4 MG INJ IV PRN (07:53)
--- NOTE | 2018-05-28 11:35 | DS ---
Date/Time of Note Date/Time of Note DATE: 05/28/18 TIME: 11:34 Discharge Summary Admission/Discharge Info Admit Date/Time May 26, 2018 at 20:40 Discharge Date/Time Discharge Diagnosis 1. Recurrent small bowel obstruction. 2. History of spigelian hernia. 3. Diabetes mellitus type 2. Hemoglobin A1c 7.5. 4. Hypertension. 5. Hyperlipidemia. 6. Obesity. BMI 41.6 kg/m. Patient Condition: Stable Consults Ramo Wilson MD, General Surgery. Procedures Small Bowel X-ray IMPRESSION: 1. Nasogastric tube tip in the stomach. 2. Prior right upper quadrant abdomen surgery. 3. Mildly dilated mid small bowel measuring 4.9 cm. 4. No evidence of obstruction. 5. Otherwise unremarkable small bowel follow-through. Hx of Present Illness This is a 58-year-old female with a past medical history of multiple abdominal surgeries and multiple small bowel obstructions who presented to [facility] with complaint of abdominal pain. Patient's CT scan showed dilated small bowel with air-fluid levels and decompressed distal small bowel consistent with small bowel obstruction. The patient was evaluated by general surgery at [facility]. The patient was transferred to [facility] for further evaluation and management because of insurance reasons. Hospital Course The patient was admitted to inpatient setting. She was started on NGT decompression. General surgery consult was obtained. The patient underwent an abdominal x-ray upon admission to [facility] that was showing gaseous distention of the proximal small bowel, unable to exclude bowel obstruction. The patient underwent a small bowel follow-through on 05/27/2018 that was showing no evidence of any obstruction. The patient's NGT decompression was discontinued. The patient's NG tube was discontinued. The patient was started on a clear liquid diet and the patient's diet was advanced as tolerated. The patient was cleared by general surgery to be discharged home. The patient's chronic problems include diabetes mellitus type 2. The patient's hemoglobin A1c was found to be 7.5. The patient was maintained on sliding scale insulin. The patient has underlying hypertension. The patient was maintained on PRN antihypertensives for any high blood pressure readings. The patient has underlying dyslipidemia. The patient's fasting lipid panel was satisfactory. The patient is obese with a BMI of 41.6 kg/m square. The patient was advised on weight reduction. The patient had a stable hospital course. The patient is stable to be discharged home. The patient had discharge orders on 05/27/2018. However, the patient had some intolerance to solid food intake. Therefore, the patient's discharge was delayed until 05/28/2018 when the patient was able to tolerate a solid diet without any significant gastrointestinal symptoms. Discharge Instructions 1. Resume home medications. 2. Take a carbohydrate controlled diet as tolerated. 3. Resume activities as tolerated. 4. Follow-up with your primary care physician in 2 weeks. 5. Please go to the nearest emergency room if you have any abdominal pain, persistent nausea/vomiting, or any other unusual signs/symptoms. The patient verbalized understanding of her discharge instructions. At this time I would like to thank Dr. Wilson for seeing the patient and providing clinical recommendations. The patient was seen in collaboration with Dr. Reyes. Home Meds Reported Medications Glimepiride* (Glimepiride*) 2 Mg Tablet, 2 MG PO BID, #30 07/21/17 Atorvastatin* (Atorvastatin*) 40 Mg Tablet, 40 MG PO QHS, #30 07/21/17 Losartan Potassium* (Losartan Potassium*) 50 Mg Tablet, 50 MG PO DAILY, #30 07/21/17 Fluoxetine Hcl* (Fluoxetine Hcl*) 20 Mg Capsule, 20 MG PO DAILY, CAP 11/15/16 Glyburide* (Glyburide*) 2.5 Mg Tablet, 2.5 MG PO DAILY, #30 TAB 11/15/16 Metformin Hcl* (Metformin Hcl*) 1,000 Mg Tablet, 1000 MG PO BID, #30 TAB 11/15/16 Follow-up Plan Patient to follow-up with her primary care physician in 2 weeks. Primary Care Provider Not On Staff Doctor Time spent on discharge: > 30 minutes Pending Labs Laboratory Tests Test 05/27/18 12:45 05/27/18 17:29 05/27/18 20:23 05/28/18 05:42 Bedside 144 152 119 Glucose mg/dL (70-220) mg/dL (70-220) mg/dL (70-220) White Blood 8.5 Count 10^3/ul (4.8-1 0.8) Red Blood 4.15 Count 10^6/ul (4.20- 5.40) Hemoglobin 11.2 g/dl (12.0-16. 0) Hematocrit 35.6 % (37.0-47.0) Mean 85.8 Corpuscular fl (82.0-101.0 Volume ) Mean 27.0 Corpuscular pg (29.0-33.0) Hemoglobin Mean 31.5 Corpuscular g/dl (32.0-37. Hemoglobin Conc 0) ent Red Cell 13.7 Distribution % (11.5-14.5) Width Platelet Count 194 10^3/UL (140-4 15) Mean Platelet 11.0 Volume fl (7.4-10.4) Immature 0.400 Granulocytes % % (0.001-0.429 ) Neutrophils % 66.1 % (39.0-77.0) Lymphocytes % 25.2 % (15.0-51.0) Monocytes % 6.5 % (0.0-11.0) Eosinophils % 1.6 % (0.0-7.0) Basophils % 0.2 % (0.0-2.0) Nucleated Red 0.0 Blood Cells % /100WBC (0.0-0 .0) Immature 0.030 Granulocytes # 10^3/ul (0.0-0 .031) Neutrophils # 5.6 10^3/ul (1.6-7 .5) Lymphocytes # 2.2 10^3/ul (0.8-2 .9) Monocytes # 0.6 10^3/ul (0.3-0 .9) Eosinophils # 0.1 10^3/ul (0.0-0 .5) Basophils # 0.0 10^3/ul (0.0-0 .1) Nucleated Red 0.0 Blood Cells # 10^3/ul (0.0-0 .0) Sodium Level 142 mmol/L (135-14 4) Potassium 3.9 Level mmol/L (3.5-5. 1) Chloride Level 106 mmol/L (97-110 ) Carbon Dioxide 25 Level mmol/L (21-31) Anion Gap 11 (5-13) Blood Urea 14 Nitrogen mg/dl (7-20) Creatinine 0.41 mg/dl (0.44-1. 00) Est Glomerular > 60 Filtrat mL/min (>60) Rate mL/min Glucose Level 123 mg/dl (70-220) Calcium Level 8.4 mg/dl (8.4-10. 2) Total 0.3 Bilirubin mg/dl (0.2-1.3 ) Direct 0.00 Bilirubin mg/dl (0.00-0. 20) Indirect 0.3 Bilirubin mg/dl (0-1.1) Aspartate Amino 31 Transf (AST/SGO IU/L (15-46) T) Alanine 39 Aminotransferas IU/L (13-69) e (ALT/SGPT) Alkaline 69 Phosphatase IU/L (42-121) Total Protein 6.3 g/dl (6.1-8.1) Albumin 3.3 g/dl (3.3-4.9) Globulin 3.00 g/dl (1.3-3.2) Albumin/Globuli 1.10 n Ratio Test 05/28/18 08:27 Bedside 129 Glucose mg/dL (70-220) ABHI GUSMAN NP May 28, 2018 11:35
[2018-05-29] MEDS ORDERED: ACCUCHECK AT 2AM (Patients on SS coverage) XX SCH (02:00)
== END 2018-05-28 13:13 | disposition home or self-care (01) | DRG 389 ==
LOC: 2NE 20:40
PROVIDERS: ADMIT Internal Medicine; ATTEND Internal Medicine
DX: K56.609 Unspecified intestinal obstruction, unspecified as to partial versus complete obstruction (principal); Z68.41 Body mass index [BMI] 40.0-44.9, adult; E11.9 Type 2 diabetes mellitus without complications; I10 Essential (primary) hypertension; E78.5 Hyperlipidemia, unspecified; K29.70 Gastritis, unspecified, without bleeding; M19.90 Unspecified osteoarthritis, unspecified site; Z90.49 Acquired absence of other specified parts of digestive tract; Z90.710 Acquired absence of both cervix and uterus; E66.01 Morbid (severe) obesity due to excess calories
CPT/HCPCS: 74018; 74250; 80053; 80061; 82962; 83036; 83735; 84443; 85025; 87081; J1815; J2270; J2405; J7030

== ENCOUNTER 2018-08-02 13:20 | Emergency (ER) | payer BC ==
[~2018-08-02] VITALS: Wt 117.9 kg
[2018-08-02 13:23] VITALS: BP 144/92; PULSE 97; RESP 18
[2018-08-02] MEDS ORDERED: KETOROLAC 30 MG INJ IM STA (15:16)
--- NOTE | 2018-08-02 15:19 | ERD ---
ER Documentation Chief Complaint Chief Complaint BACK PAIN X 1 WEEK, HAS HERNIATED DISC HPI 58-year-old female, with history of chronic back pain and depression, presents to the emergency department, complaining of worsening of bilateral lower back pain for 1 week. The patient has been taking Tylenol with mild improvement of the symptoms. She denies any recent trauma, no fever, no chills, no urinary symptoms, no rashes, no abdominal pain. There is no reports of weakness, numbness, tingling or incontinence. In addition, the patient reports 2 weeks with dry cough, predominantly in the morning and at night with no shortness of breath, no chest pain. ROS All systems reviewed and are negative except as per history of present illness. Medications Home Meds Active Scripts Cetirizine Hcl* (Zyrtec*) 10 Mg Capsule, 10 MG PO DAILY, #10 TAB.CHEW Prov:PAL JSEUS MD 08/02/18 Baclofen* (Baclofen*) 10 Mg Tablet, 10 MG PO QHS for 7 Days, #7 TAB Prov:PAL JESUS MD 08/02/18 Hydrocodone/Acetaminophen ([place] 5-325 Tablet) 1 Each Tablet, 1 TAB PO BID PRN for PAIN, #6 TAB Prov:PAL JESUS MD 08/02/18 Reported Medications Glimepiride* (Glimepiride*) 2 Mg Tablet, 2 MG PO BID, #30 07/21/17 Atorvastatin* (Atorvastatin*) 40 Mg Tablet, 40 MG PO QHS, #30 07/21/17 Losartan Potassium* (Losartan Potassium*) 50 Mg Tablet, 50 MG PO DAILY, #30 07/21/17 Fluoxetine Hcl* (Fluoxetine Hcl*) 20 Mg Capsule, 20 MG PO DAILY, CAP 11/15/16 Glyburide* (Glyburide*) 2.5 Mg Tablet, 2.5 MG PO DAILY, #30 TAB 11/15/16 Metformin Hcl* (Metformin Hcl*) 1,000 Mg Tablet, 1000 MG PO BID, #30 TAB 11/15/16 Allergies Allergies: Coded Allergies: No Known Allergy (Unverified , 09/18/16) PMhx/Soc History of Surgery: Yes (hernia sx x5, ) Anesthesia Reaction: No Hx Neurological Disorder: No Hx Respiratory Disorders: No Hx Cardiac Disorders: Yes (HTN) Hx Psychiatric Problems: Yes (depression) Hx Miscellaneous Medical Probl: Yes (dm) Hx Alcohol Use: No Hx Substance Use: No Hx Tobacco Use: No Smoking Status: Never smoker FmHx Family History: diabetes; No coronary disease Physical Exam Vitals Vital Signs Date Temp Pulse Resp B/P (MAP) Pulse Ox O2 O2 Flow FiO2 Time Delivery Rate 08/02/18 98.4 97 18 144/92 99 13:23 (109) Physical Exam Patient is in no acute distress, vital signs stable. Alert and fully oriented. EYES: PERRLA, EOMI, Sclera and conjunctiva appear normal. EARS: Canals clear, tympanic membranes WNL THROAT: Normal oropharynx. NECK: Supple, No lymphadenopathy. Full ROM without pain or tenderness. HEART: RRR, no rubs, murmurs, clicks or gallops. LUNGS: Clear to auscultation. ABDOMEN: Soft, non-tender without masses or hepatosplenomegaly. EXTREMITIES: No edema bilaterally. BACK: Normal inspection, no bruises, no rashes, no deformity, decreased range of motion for lateral rotation and flexion. No vertebral tenderness, bilateral lower muscle spasm. NEURO: Cranial nerves grossly intact, no motor or sensory deficit Results 24 hrs Laboratory Tests Test 08/02/18 15:43 Bedside Urine pH (LAB) 5.5 Bedside Urine Protein (LAB) Trace Bedside Urine Glucose (UA) Negative Bedside Urine Ketones (LAB) Negative Bedside Urine Blood Trace-intact Bedside Urine Nitrite (LAB) Negative Bedside Urine Leukocyte Esterase (L Negative Current Medications Medications Dose Sig/Carmen Start Time Status Last (Trade) Ordered Route PRN Stop Time Admin Dose Reason Admin Ketorolac 30 mg ONCE STAT 08/02/18 DC 08/02/18 Tromethamine IM 15:16 15:37 (Toradol) 08/02/18 15:21 1 tab ONCE ONCE 08/02/18 DC 08/02/18 Acetaminophen PO 15:30 15:37 / 08/02/18 15:31 Hydrocodone Bitart ([place] (5/325)) Procedures/MDM At the time of discharge, patient nontoxic, ambulating, vital signs stable, no gross neurologic deficit. differential diagnosis include but not limited to: lumbar sprain/strain, sciatica, herniated disk, UTI less likely pyelo, kidney stone. Neurovascular exam grossly intact. no clinical findings suggestive of acute infectious process, no acute deformity, no edema, no rashes. Physical examination and clinical presentation consistent most likely with acute on chronic back pain with sciatica. During the ED course, the patient received Toradol IM with improvement of the symptoms. Results and clinical impression discussed with the patient who agrees with yajaira fernandes. The patient is stable to be treated outpatient and will be discharged home with recommendations and close monitoring The patient was informed that the evaluation in the emergency department has been done to rule out an acute emergency, therefore, chronic conditions like malignancy or autoimmune diseases have not been evaluated; therefore, the patient was instructed to follow up with the primary care provider in the next 48h. If symptoms persist, worsen or new symptoms develop, then patient should return to the ED immediately. Instructions explained and given to patient with acknowledgment and demonstrated understanding. Disclaimer: Inadvertent spelling and grammatical errors are likely due to EHR/dictation software use and do not reflect on the overall quality of patient care. Also, please note that the electronic time recorded on this note does not necessarily reflect the actual time of the patient encounter. Departure Diagnosis: Primary Impression: Back pain with sciatica Additional Impression: Cough Condition: Stable Patient Instructions: Back Pain W/ Sciatica Additional Instructions: Muchas estephanie por [facility] para haynes servicio. Esperamos que en haynes visita a la lori de emergencia haynes problema medico haya sido solucionado y que se sienta mucho mejor. Para estar seguros que haynes mejoria sigue en proceso, le pedimos el favor de hacer betsy caesar de seguimiento medico con haynes doctor primario en los proximos 2-4 kennedy. Lleve con usted estos documentos y las medicinas recetadas. Si alan sintomas empeoran, NO SE ESPERE, por favor regrese a lori de emergencia INMEDIATAMENTE. En jeremie que usted no tenga un mdico de atencin primaria: Llame al mdico o clnica comunitaria de referencia que aparece abajo charlette las horas de consultorio para hacer betsy caesar para que le vean. CLINICAS: [facility] [id number] [facility] [id number] [facility] [phone] [facility] [phone] [facility] [phone] [id number] [facility]. [phone] PAL WADSWORTH MD August 02, 2018 15:19
[2018-08-02] MEDS ORDERED: HYDROCODONE/APAP (5/325) TAB PO ONE (15:30)
[2018-08-02] MEDS ORDERED: CETI10CA PO (15:47)
[2018-08-02] MEDS ORDERED: BACL10TA PO (15:47)
[2018-08-02] MEDS ORDERED: HYDR-4011 PO (15:47)
== END 2018-08-02 16:07 | disposition home or self-care (01) ==
LOC: FTE 13:20
DX: M54.40 Lumbago with sciatica, unspecified side (principal); R05 Cough; I10 Essential (primary) hypertension; E11.9 Type 2 diabetes mellitus without complications; Z79.84 Long term (current) use of oral hypoglycemic drugs
CPT/HCPCS: 71046; 81003; 96372; J1885; Z7502; Z7610